=== PATIENT | male | born 1945 | race Caucasian/White ===

== ENCOUNTER 2018-08-14 08:03 | Emergency (ER) | payer OTHER ==
[2018-08-14] MEDS ORDERED: SODIUM BICARBONATE 50 MEQ/50 ML SYR IV ONE (08:04)
--- NOTE | 2018-08-14 08:14 | EDPHY ---
HPI/HX/ROS/PE/MDM Narrative: CHIEF COMPLAINT: Cardiac arrest HPI: This patient is a 72-year-old male with history of CAD s/p CABG and stent placement, CHF, renal transplant. He arrives emergently by EMS after a witnessed cardiac arrest this morning at about 7:00am. His states they were on their way to [facility] for a scheduled cardiac catheterization. They were getting into the car in the garage when he stated he did not feel well and fell to the ground unresponsive. His called 911 but was unable to perform CPR on the patient. Fire crews initiated CPR on arrival at 07:14, and gave one shock by AED prior to ambulance arrival. EMS crews noted the patient was in ventricular fibrillation and delivered one additional shock as well as six rounds of epinephrine. IO and IV access obtained. Patient does have a pacemaker, and a paced rhythm at 60bpm was noted by EMS. The patient arrives with CPR in progress and an LMA airway in place. (Field: epinephrine administered at 7:28 7:32, 7:36, 7:40, 7:44, 7:54). REVIEW OF SYSTEMS: A comprehensive 10 system review of systems is otherwise negative aside from elements mentioned in the history of present illness and medical decision making. PMH: CAD s/p CABG and stent placement, CHF, renal transplant, pacemaker. SOCIAL HISTORY: . Recently moved to [place] from [place]. PHYSICAL EXAM: General: Unresponsive. CPR in progress. Incontinence of stool. ENT: Pupils mid and fixed. ENT inspection normal. Neck: Normal inspection. Respiratory: Agonal breathing. Cardiovascular: Radial pulses palpable with CPR. Abdomen: No acute finding, atraumatic. Back: Normal to inspection. Skin: Pale from the neck down. Extremities: Normal appearance. Neuro: Unresponsive. ED Course: 8:02 Met EMS on arrival. This patient is a 73 y/o male with history of CAD s/p CABG and stent placement, renal transplant, congestive heart failure, and pacemaker placement. He arrives emergently via EMS after a witnessed cardiac arrest about one hour prior to arrival. CPR was initiated at 7:14, 48 minutes prior to arrival. Patient was brought to the trauma bay and further resuscitative efforts were initiated. 8:04 Shockable rhythm on monitor. One shock at 360J delivered. High quality CPR continued. 8:13 Procedure: Limited transthoracic echocardiogram. A limited transthoracic echocardiogram was performed and interpreted by myself for cardiac arrest. Limited transthoracic echocardiogram: The pericardium was visualized and found to be negative for pericardial fluid. Cardiac activity was absent. No abdominal aortic enlargement. Left ventricular hypertrophy. The study was negative for pericardial effusion. The study demonstrated absence of cardiac activity. The procedure was interpreted and performed by myself, Dr. Delaney. 8:15 1gm IV Calcium chloride administered. 8:19 It has been one hour and 20 minutes since arrest with no ROSC. CPR discontinued. The patient's family is now present. I met with them and discussed the course of the patient's care and answered questions. - Data Points Medications Given: Discontinued Medications Calcium Chloride (Calcium Chloride) 1 gm IV EDNOW ONE Stop: 08/14/18 09:26 Last Admin: 08/14/18 09:26 Dose: 1 gm Dextrose (Dextrose 50% Syringe) 25 gm IVP EDNOW ONE Stop: 08/14/18 09:26 Last Admin: 08/14/18 09:26 Dose: 25 gm Epinephrine HCl (Epinephrine) 1 mg IVP EDNOW ONE Stop: 08/14/18 09:25 Last Admin: 08/14/18 09:26 Dose: 1 mg General Initial Vital Signs: Initial Vital Signs Temperature (C) 34.5 C L 08/14/18 08:44 Departure - Departure Disposition: Clinical Impression: Cardiac arrest Referrals: Patient,NotPresent [Primary Care Provider] - As per Instructions Report Scribed for: Hussein Delaney Report Scribed by: Nataliia Calero Date of Report: 08/14/18 Time of Report: 09:11 Physician Review and Approval Statement: Portions of this note were transcribed by an ED scribe. I personally performed the history, physical exam, and medical decision making; and confirm the accuracy of the information in the transcribed note.
[2018-08-14] MEDS ORDERED: EPINEPHrine 1 MG/10 ML SYR IVP ONE ×2 (09:24→12:00)
[2018-08-14] MEDS ORDERED: CALCIUM CHLORIDE 1 GM/10 ML INJ IV ONE (09:25)
[2018-08-14] MEDS ORDERED: D50W 25 GM/50 ML SYR IVP ONE (09:25)
[2018-08-14] MEDS ORDERED: CALCIUM CHLORIDE 1 GM/10 ML INJ ONE (12:00)
== END 2018-08-14 10:45 | disposition expired ==
LOC: EDBD 08:03 → MERGE 08:03
PROC: 5A2204Z Restoration of Cardiac Rhythm, Single (ICD-10-PCS; principal; 2018-08-14)
PROC: 5A12012 Performance of Cardiac Output, Single, Manual (ICD-10-PCS; principal; 2018-08-14)
DX: I46.9 Cardiac arrest, cause unspecified (principal); I50.9 Heart failure, unspecified; I25.10 Atherosclerotic heart disease of native coronary artery without angina pectoris; Z94.0 Kidney transplant status; Z95.5 Presence of coronary angioplasty implant and graft; Z95.0 Presence of cardiac pacemaker
CPT/HCPCS: 96374